=== PATIENT | male | born 1985 | race African-American/Black ===

== ENCOUNTER 2022-04-08 15:22 | Emergency (ER) | payer SELFPAY ==
[~2022-04-08] VITALS: Ht 177.8 cm; Wt 65.0 kg
[2022-04-08 15:27] VITALS: BP 120/72
== END 2022-04-08 22:25 | disposition left against medical advice (07) ==
LOC: ER 15:22
DX: Z53.21 Procedure and treatment not carried out due to patient leaving prior to being seen by health care provider (principal)